=== PATIENT | male | born 1975 | race Caucasian/White ===

== ENCOUNTER 2017-02-14 21:02 | Emergency (ER) | payer MEDICAID, OTHER ==
[~2017-02-14] VITALS: Ht 175.3 cm; Wt 83.9 kg
[2017-02-14] MEDS ORDERED: FLUORESCEIN (FLUOR-I-STRIPS) 1 MG STRP OU ONE (23:00)
[2017-02-14] MEDS ORDERED: BSS 15 ML IR ONE (23:00)
[2017-02-14] MEDS ORDERED: TETRACAINE 0.5% OPHTH SOLN 4 ML BTL (SINGLE DOSE ONLY) OU ONE (23:00)
[2017-02-14] MEDS ORDERED: IBUPROFEN 800 MG (MOTRIN) TAB PO ONE (23:15)
--- NOTE | 2017-02-14 23:31 | ED EENT ---
History of Present Illness General Chief Complaint: Eye Problems Stated Complaint: L EYE INJ Nursing Triage Note: PT TO ED 5 W/ S.O. FOR C/O LT EYE PAIN AFTER BEING HIT ON THE EYE W/ A WIRE WHILE AT WORK. DENIES WORKMAN'S COMP. Source: patient, spouse Exam Limitations: no limitations History of Present Illness Time seen by provider: 22:57 Initial Comments Patient was on a job and he had a piece 5 wire, and strike him directly in the eye on the left side. He says this occurred about 1830 tonight. He finished the job and then came to the ER. He says is having quite a bit of burning and pain and blurriness in that left eye. He's never had any eye injury before. 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 He is having a headache but no nausea vomiting fever or chills cough or shortness of breath. Allergies and Home Medications Allergies Coded Allergies: No Known Drug Allergies (Unverified , 02/14/17) Review of Systems Constitutional: No chills, No fever Eyes: Denies Blindness, Blurred Vision, Denies Drainage, Denies Inflammation, Pain, Photophobia, Denies Previous Injury Ears: Denies Dizziness, Denies Pain Nose: denies clots, denies congestion Respiratory: No cough, No short of breath Cardiovascular: No chest pain, No palpitations Gastrointestinal: No abdominal pain, No constipation, No diarrhea, No nausea Musculoskeletal: No back pain, No joint pain Past Ttxwowc-Ijbcbi-Sldawm Hx Patient Social History Alcohol Use: Denies Use Recreational Drug Use: No Smoking Status: Current Everyday Smoker Type Used: Cigarettes Recent Foreign Travel: No Contact w/Someone Who Travel: No Recent Infectious Disease Expo: No Recent Hopitalizations: No Physical Abuse: No Sexual Abuse: No Mistreated: No Fear: No Surgeries History of Surgeries: No Respiratory History of Respiratory Disorde: No Cardiovascular History of Cardiac Disorders: No Neurological History of Neurological Disord: No Genitourinary History of Genitourinary Disor: No Gastrointestinal History of Gastrointestinal Di: No Musculoskeletal History of Musculoskeletal Dis: No Endocrine History of Endocrine Disorders: No HEENT History of HEENT Disorders: No Cancer History of Cancer: No Psychosocial History of Psychiatric Problem: No Suicide Risk Score: 0 Integumentary History of Skin or Integumenta: No Blood Transfusions History of Blood Disorders: No Physical Exam Vital Signs Vital Sign - Last 12Hours 02/14/17 22:37 Temp 98.0 Pulse 67 Resp 20 B/P (MAP) 173/115 Pulse Ox 98 O2 Delivery Room Air General Appearance: WD/WN, mild distress Eyes: right eye normal inspection, left eye other (pain, improved on tetracaine , Wood's lamp reveals a corneal abrasion 3 x 2 mm over the pupil and inferior portion of the iris.), bilateral eye PERRL, bilateral eye EOMI Ears: bilateral ear auricle normal, bilateral ear canal normal, bilateral ear TM normal Nose: normal inspection, No active bleeding Mouth/Throat: normal mouth inspection, pharynx normal Neck: non-tender, full range of motion, normal inspection Cardiovascular: normal peripheral pulses, regular rate, rhythm Respiratory: no respiratory distress, no accessory muscle use Neurologic/Psychiatric: alert, oriented x 3 Skin: normal color, warm/dry Progress/Results/Core Measures Results/Orders My Orders Orders - KERA BUTLER Tetracaine 0.5% Ophth Rachel Sdv (Tetracai (02/14/17 23:00) Fluorescein Strips ([id number]) (02/14/17 23:00) Balanced Salt Irrigation Soln (Bss Irrig (02/14/17 23:00) Medications Given in ED Current Medications Medications Dose Ordered Sig/Coretta Route Start Time Stop Time Status Last Admin Dose Admin Balanced Salt Solution 15 ml ONCE ONCE IR 02/14/17 23:00 02/14/17 23:01 DC 02/14/17 23:07 15 ML Fluorescein Sodium 1 mg ONCE ONCE OU 02/14/17 23:00 02/14/17 23:01 DC 02/14/17 23:07 1 MG Tetracaine HCl 4 ml ONCE ONCE OU 02/14/17 23:00 02/14/17 23:01 DC 02/14/17 23:07 4 ML Vital Signs/I&O Vital Sign - Last 12Hours 02/14/17 22:37 Temp 98.0 Pulse 67 Resp 20 B/P (MAP) 173/115 Pulse Ox 98 O2 Delivery Room Air Blood Pressure Mean: 134 Departure Impression Impression: Primary Impression: Corneal abrasion Qualified Codes: S05.02XA - Injury of conjunctiva and corneal abrasion without foreign body, left eye, initial encounter Disposition: HOME, SELF-CARE Condition: Stable Departure-Patient Inst. Decision time for Depature: 23:18 Referrals: NO,LOCAL PHYSICIAN (PCP/Family) Primary Care Physician Patient Instructions: Corneal Abrasion (DC) Add. Discharge Instructions: First thing tomorrow morning call the clinic [facility] at [phone] to be seen. 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 Avoid dust or further injury until your eye has been examined. All discharge instructions reviewed with patient and/or family. Voiced understanding. Copy Copies To 1: HE TEJADA OD, TITUS J Feb 14, 2017 23:31
[2017-02-14 23:33] VITALS: BP 155/128
== END 2017-02-14 23:33 | disposition home or self-care (01) ==
LOC: ER 21:04
DX: S05.02XA Injury of conjunctiva and corneal abrasion without foreign body, left eye, initial encounter (principal); F17.210 Nicotine dependence, cigarettes, uncomplicated; W20.8XXA Other cause of strike by thrown, projected or falling object, initial encounter
CPT/HCPCS: 99283